=== PATIENT | male | born 1960 | race Caucasian/White ===

== ENCOUNTER → 2018-02-23 07:18 | Outpatient (CLI) | payer BC, SELFPAY ==
--- NOTE | 2018-02-23 07:18 | DT_ITS ---
This patient was seen during an EMR downtime February 19, 2018 - February 26, 2018. This patient may have a combination of paper and electronic documentation or all paper documentation. All documentation is viewable within the e-chart portion of [facility] for each patient visit.
[2018-02-23 15:12] LABS: BUN 15 mg/dL (7-18); BUN/Creat Ratio 14.7 RATIO (10-20); Calcium,Total 8.3 mg/dL (8.5-10.1); Chloride 106 mmol/L (98-107); Creatinine, Serum 1.02 mg/dL (0.70-1.30); EST Glomerular Filtration Rate 79 mL/min (>60); Est Glom Filt Rate - Afr Amer 96 mL/min (>60); Glucose 90 mg/dL (74-106); Potassium 3.9 mmol/L (3.5-5.1); Sodium Level 141 mmol/L (136-145)
[2018-02-23 15:13] LABS: Anion Gap 7 (5-15)
[2018-02-27 09:53] LABS: Hematocrit 45.4 % (40-54); Hemoglobin 15.2 g/dl (13.0-16.5); Lymphocyte % 24.3 % (19-41); Mean Corp Hgb Conc 33.5 g/gl (32-36); Mean Corpuscular Hgb 29.3 pg (27.0-32.0); Mean Corpuscular Volume 87.6 fL (80-94); Neutrophil % 57.7 % (47-70); POSITIVE COUNT NO; POSITIVE DIFFERENTIAL NO; POSITIVE MORPHOLOGY NO; Platelet Count 277 K/mm3 (150-450); RBC Distribution Width SD 41.9 fl (35.1-43.9); Red Blood Count 5.18 M/mm3 (4.6-6.2); White Blood Count 7.6 K/mm3 (4.4-11.0)
[2018-02-27 09:54] LABS: Absolute Lymphocyte Count 1.86 X10^3/ul (0.83-4.51); Absolute Neutrophil Count 4.4 X10^3/uL (2.0-7.7); Basophil# 0.04 X10^3/uL; Basophil% 0.5 % (0-1); Eosinophil# 0.73 X10^3/uL; Eosinophils% 9.6 % (0-5); Lymphocyte # 1.86 X10^3/ul (4.0); Monocyte# 0.58 X10^3/uL; Monocyte% 7.6 % (0-10); Neutrophil # 4.41 X10^3/uL (2.7-7.7)
== END ==
PROVIDERS: Family Provider Family Medicine; PCP Family Medicine; Visit Provider Family Medicine
DX: R63.4 Abnormal weight loss (principal)
CPT/HCPCS: 36415; 80048; 85025

== ENCOUNTER 2018-04-17 05:54 | Day surgery (SDC) | payer BC, SELFPAY ==
[2018-04-17] VITALS (19 sets, daily range): BP systolic 63–112; BP diastolic 45–88; PULSE 62–85; RESP 16–18; TEMP 35.8–36.9; O2SAT 95–100; BMI 22.6
--- NOTE | 2018-04-17 | IMM_PTH ---
PATIENT: GENEVIEVE CINTRON LOC: EN U#:[id number] AGE/SX: 57/M ROOM: RE04/17/[address]: Dr. Puneet Gillette MD : 1960 BED: DIS: 04/17/2018 SPEC #: [id number] RECD: 04/18/18 14:33 STATUS: MARIA E RESyeda #: [id number] RANDA: 04/17/18 00:[address]: Puneet Gillette DEPT: IMMUNOHISTOCHEMISTRY RECD BY: Sheryl Rodrigues ENTERED: 04/18/18 14:34 SP TYPE: IMMUNO OTHR DR: Dr. Alex Baldwin, DO Tissues: B - Stomach, NOS C - Stomach, NOS Procedures: H Pylori (initial) PHYSICIAN & INSTITUTION [place] [id number] SPECIMEN INFORMATION: Tissue Source: B ? Antral biopsy, C ? Body of stomach Clinical Info: Epigastric abdominal pain, family history of colon CA Specimen Number: [id number] B & C CPT code: 06254 x2 METHODOLOGY: Deparaffinized sections of prefer/formalin-fixed tissue or PAP/DQ stained slides are incubated with monoclonal/polyclonal antibodies/oligonucleotide probes. Localization is made via biotin free immunoperoxidase method. Appropriate controls are performed and reacted as expected. Results on target cell population are indicated in the following table: RESULTS: ANTIBODY / CLONE RESULT Block B H Pylori (polyclonal) negative Block C H Pylori (polyclonal) negative These tests were developed and their performance characteristics determined by [facility]. They may not have been cleared or approved by the U.S. Food and Drug Administration. The FDA has determined that such clearance or approval is not necessary. INTERPRETATION: B. Antral biopsy: Negative for Helicobacter pylori organisms. C. Body of stomach: Negative for Helicobacter pylori organisms. SJ:cynthia 04/19/18
--- NOTE | 2018-04-17 07:00 | EGD_PTH ---
PATIENT: GENEVIEVE CINTRON LOC: EN U#:[id number] AGE/SX: 57/M ROOM: RE04/17/[address]: Dr. Puneet Gillette MD : 1960 BED: DIS: 04/17/2018 SPEC #: [id number] RECD: 04/17/18 07:00 STATUS: MARIA E RICK #: [id number] RANDA: 04/17/18 07:[address]: Puneet Gillette DEPT: SURGICAL PATHOLOGY RECD BY: George Morelos ENTERED: 04/17/18 12:07 SP TYPE: EGD BIOPSY OT DR: Dr. Alex Baldwin, DO Tissues: A - Duodenum, NOS B - Gastric mucous membrane C - Stomach, NOS D - Esophageal mucous membrane E - Esophageal mucous membrane Procedures: Surgery Specimen Level IV HEADER OPERATION: Colonoscopy, EGD PRE-OP DIAGNOSIS: Epigastric abdominal pain, family history of colon cancer TISSUE SUBMITTED: A ? Duodenal biopsy, B ? Antral biopsy, C ? Body of stomach, D ? Distal esophagus, E ? Mid esophagus MICROSCOPIC DIAGNOSIS A. 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 B. Antral biopsy: Mild gastritis. See microscopic description and comment. C. Body of stomach, biopsy: Chronic active gastritis. See comment. D. Distal esophagus, biopsy: Fragments of squamous epithelium with minimal chronic inflammation. E. Mid esophagus, biopsy: Fragments of squamous epithelium with minimal chronic inflammation. SJ:cynthia 04/18/18 COMMENT B & C. The results of immunohistochemistry for Helicobacter pylori will be reported separately ([id number]). MICROSCOPIC DESCRIPTION Slides are reviewed. B. The specimen shows fragments of gastric mucosa with chronic inflammatory cell infiltrates in the lamina propria consisting of lymphocytes and plasma cells, consistent with mild chronic gastritis. GROSS DESCRIPTION A - Received in fixative is one container labeled with the patient's name and designated duodenal biopsy. The specimen consists of one irregular fragment of light montejo soft tissue that measures 0.3 x 0.3 x 0.1 cm. The specimen is totally submitted in one cassette. B - Received in fixative is one container labeled with the patient's name and designated antral biopsy. The specimen consists of one irregular fragment of light montejo soft tissue that measures 0.8 x 0.2 x 0.1 cm. The specimen is totally submitted in one cassette. C - Received in fixative is one container labeled with the patient's name and designated body of stomach biopsy. The specimen consists of two irregular fragments of light montejo soft tissue that in aggregate measure 0.8 x 0.4 x 0.1 cm. The specimen is totally submitted in one cassette. D - Received in fixative is one container labeled with the patient's name and designated distal esophagus biopsy. The specimen consists of multiple irregular fragments of light montejo soft tissue that in aggregate measure 0.4 x 0.2 x 0.1 cm. The specimen is totally submitted in one cassette. E - Received in fixative is one container labeled with the patient's name and designated mid esophagus biopsy. The specimen consists of multiple irregular fragments of light montejo soft tissue that in aggregate measure 0.4 x 0.3 x 0.1 cm. The specimen is totally submitted in one cassette. / SJ:rg 04/17/18 TC:4 CPT: 44621 x5
--- NOTE | 2018-04-17 07:35 | PCM.OPRPT ---
Problem List (1) Epigastric abdominal pain Status: Chronic Report of Operation Date of Procedure: 04/17/18 Pre-Operative Diagnosis: Epigastric abdominal pain. Family history of colon cancer in his mother. Weight loss Post-Operative Diagnosis: Small hiatal hernia. Diffuse galarza friable gastritis. Normal duodenum. Normal colonoscopy Surgery/Procedure Performed:: Esophagogastroduodenoscopy with multiple biopsies. Colonoscopy Description of Surgical Findings:: Timeout and informed consent was obtained. 57-year-old gentleman was taken to the endoscopy suite. His oropharynx anesthetized with Topex. He was placed in a left lateral decubitus position. He received 75 mg of Demerol and 3 mg of Versed. Videogastroscope was inserted into the esophageal inlet. The proximal mid distal esophagus not grossly remarkable. The EG junction was at 42 cm. A small 3 cm hiatal hernia noted. The scope was nicely advanced into the stomach where diffuse galarza gastritis was identified. The scope was then advanced through the pylorus. First and second portions of the duodenum were inspected this did not appear to be remarkable. Then a duodenal biopsy was obtained. The scope was pulled back within the stomach and retroflexed. It was at this time that the patient became bradycardic and mildly hypotensive. Heart rate dropped to approximately 39. There were some pauses. He received 0.5 mg of atropine. Blood pressure was carefully monitored he received an additional fluid. He appeared to respond nicely to the prescribed treatment. Multiple biopsies were obtained of the diffuse cobblestone erythema of the stomach which was friable. The scope was withdrawn to the distal esophagus and distal esophageal biopsy was obtained. Mid esophageal biopsy was obtained. Excess fluid and air was aspirated free. The procedure was completed. He appeared to stabilize with the fluid and atropine. At this point we converted from using carbon dioxide and the colonoscopy was performed with air. Appeared quite stable. Blood pressure at 80 systolic he was maintained in Trendelenburg position he had no verbal complaints. Digital rectal exam demonstrated moderate hemorrhoidal changes. There was a 3+ enlarged prostate noted flexible colonoscope inserted the rectum advanced very easily through the colon within a very short period of time the cecum was reached. Bowel prep was good. The cecum ileocecal valve was nicely achieved. The scope was carefully withdrawn from the cecum ascending colon transverse colon descending colon and sigmoid colon. Scope was retroflexed some moderate internal hemorrhoids noted. No acute colonic pathology was identified. Excess fluid and air was aspirated free the procedure was completed the patient remained quite stable throughout the entire colonoscopy was noted there was no additional bradycardia. The diaphoresis had resolved. Impression Small hiatal hernia, diffuse galarza friable gastritis, normal-appearing duodenum Normal appearing colon. Moderate internal hemorrhoids. 3+ enlarged prostate The patient's next colonoscopy will be recommended in 5 years previous previous colonoscopy was November 29, 2006. He has a family history with a mother had colon cancer. He will be notified of his pathology results. Findings are suspicious for a diffuse gastritis possibly H. pylori related. The patient is on famotidine currently. We will await pathology results to provide further direction. Cc: Dr. Robel Baldwin The upper endoscopy was started at 0710. It was completed at 0716. The colonoscopy started 07. The cecum was reached at 0725. The procedure was completed at 0733. Puneet Gillette M.D., F.A.C.S. Type of Anesthesia:: IV Sedation
--- NOTE | 2018-04-17 07:44 | EKG12_ITS ---
Test Reason : SIDNEY Blood Pressure : / mmHG Vent. Rate : 072 BPM Atrial Rate : 072 BPM P-R Int : 158 ms QRS Dur : 074 ms QT Int : 414 ms P-R-T Axes : 062 048 058 degrees QTc Int : 453 ms Normal sinus rhythm Septal infarct , age undetermined Abnormal ECG Confirmed by BARI CHEN, KAILEE ([id number]), editor magazine DANELLE LÓPEZ ([id number]) on 04/20/2018 8:34:55 AM Referred By: Puneet Gillette Confirmed By:KAILEE CANDELARIA MD
== END 2018-04-17 09:46 | disposition home or self-care (01) ==
LOC: EN 05:54 → AC 05:55
PROVIDERS: Family Provider Family Medicine; PCP Family Medicine; Visit Provider Surgery
PROC: 0DJD8ZZ Inspection of Lower Intestinal Tract, Via Natural or Artificial Opening Endoscopic (ICD-10-PCS; CPT 45378; principal; 2018-04-17 06:55)
DX: K29.50 Unspecified chronic gastritis without bleeding (principal); K21.0 Gastro-esophageal reflux disease with esophagitis; K44.9 Diaphragmatic hernia without obstruction or gangrene; K64.8 Other hemorrhoids; N40.0 Benign prostatic hyperplasia without lower urinary tract symptoms; Z80.0 Family history of malignant neoplasm of digestive organs; I25.10 Atherosclerotic heart disease of native coronary artery without angina pectoris; I25.2 Old myocardial infarction; E78.00 Pure hypercholesterolemia, unspecified; I95.9 Hypotension, unspecified; R00.1 Bradycardia, unspecified; R63.4 Abnormal weight loss; Z68.22 Body mass index [BMI] 22.0-22.9, adult; F17.200 Nicotine dependence, unspecified, uncomplicated; Z95.5 Presence of coronary angioplasty implant and graft; Z79.82 Long term (current) use of aspirin; Z79.899 Other long term (current) drug therapy
CPT/HCPCS: 43239; 45378; 88305; 88342; 93005; 99152; 99153; J7120

== ENCOUNTER → 2019-09-24 09:24 | Outpatient (CLI) | payer BC, SELFPAY ==
[2019-09-24 08:58] VITALS: BMI 25.2
[2019-09-24 12:44] LABS: ALB/GLOB Ratio 1.2 RATIO (0.9-2.4); AST(SGOT) 12 U/L (15-37); Alanine Aminotransfer ALT/SGPT 30 U/L (16-61); Albumin, Serum 3.4 g/dL (3.2-5.0); Alkaline Phosphatase 78 U/L (45-117); Anion Gap 3 (5-15); BUN 18 mg/dL (7-18); BUN/Creat Ratio 16.4 RATIO (10-20); Calcium,Total 8.7 mg/dL (8.5-10.1); Chloride 110 mmol/L (98-107); Cholesterol 107 mg/dL (200); EST Glomerular Filtration Rate 72 mL/min (>60); Est Glom Filt Rate - Afr Amer 87 mL/min (>60); Globulin 2.9 g/dL (2.2-4.2); Glucose 108 mg/dL (74-106); High Density Lipoprotein 49 mg/dL; Potassium 4.2 mmol/L (3.5-5.1); Protein, Total 6.3 g/dL (6.4-8.2); Sodium Level 141 mmol/L (136-145); Triglycerides 81 mg/dL; Very Low Density Lipoprotein 16 mg/dL (5-40)
== END ==
PROVIDERS: Family Provider Family Medicine; PCP Family Medicine; Visit Provider Family Medicine
DX: E78.00 Pure hypercholesterolemia, unspecified (principal)
CPT/HCPCS: 36415; 80053; 80061

== ENCOUNTER → 2020-08-27 12:27 | Outpatient (CLI) | payer BC, SELFPAY ==
[2020-08-27 11:19] VITALS: BMI 25.4
--- NOTE | 2020-08-27 12:34 | RAD_ITS ---
STUDY: X-RAY - RIGHT SHOULDER REASON FOR EXAM: Right shoulder pain, no specific injury. TECHNIQUE: 4 view(s) of the shoulder. COMPARISON: None. FINDINGS: Normal glenohumeral articulation. There is acromioclavicular arthrosis. Normal acromion. Normal humeral head and visualized proximal humerus. The soft tissue structures are unremarkable. Normal visualized pulmonary apex. RAD/Shoulder min 2 Views IMPRESSION: Acromioclavicular arthrosis. Electronically Signed: Pierre Flowers MD at 11:45 EST Tel , Service support ,
== END ==
PROVIDERS: PCP Family Medicine; Referring Provider Family Medicine; Visit Provider Family Medicine
DX: M19.011 Primary osteoarthritis, right shoulder (principal)
CPT/HCPCS: 73030